=== PATIENT | male | born 1995 | race Two or more races ===

== ENCOUNTER 2022-02-18 12:59 | Emergency (ER) | payer OTHER ==
[~2022-02-18] VITALS: Ht 167.6 cm; Wt 86.2 kg
[2022-02-18 15:25] VITALS: BP 119/76
[2022-02-18] MEDS ORDERED: IBUPROFEN 800 MG TAB PO ONE (17:15)
[2022-02-18] MEDS ORDERED: TRAM-297 PO (17:42)
== END 2022-02-18 17:45 | disposition home or self-care (01) ==
LOC: ER 13:11
DX: S23.9XXA Sprain of unspecified parts of thorax, initial encounter (principal); R07.81 Pleurodynia; M25.562 Pain in left knee; Z79.899 Other long term (current) drug therapy; V43.52XA Car driver injured in collision with other type car in traffic accident, initial encounter; Y93.89 Activity, other specified; Y92.410 Unspecified street and highway as the place of occurrence of the external cause; Y99.8 Other external cause status
CPT/HCPCS: 71045; 72070